=== PATIENT | female | born 2000 | race Two or more races ===

== ENCOUNTER 2023-11-30 17:54 | Emergency (ER) | payer OTHER ==
[~2023-11-30] VITALS: Ht 160 cm; Wt 46.0 kg
[2023-11-30 18:11] VITALS: BP 110/74; PULSE 76; RESP 16; TEMP 97.6; O2SAT 100
== END 2023-11-30 19:00 | disposition left against medical advice (07) ==
LOC: ER 17:54
DX: R51.9 Headache, unspecified (principal); Z53.21 Procedure and treatment not carried out due to patient leaving prior to being seen by health care provider